=== PATIENT | female | born 1960 | race Caucasian/White ===

== ENCOUNTER 2016-08-16 05:39 | Emergency (ER) | payer BC, OTHER ==
--- NOTE | 2016-08-16 05:53 | CPEKG ---
Heart Rate: 55 RR Interval: 1091 P-R Interval: 156 QRSD Interval: 78 QT Interval: 432 QTC Interval: 414 P [place]: 58 QRS [place]: 55 T Wave [place]: 48 EKG Severity - NORMAL ECG - EKG Impression: SINUS RHYTHM Electronically Signed By: Gera Ortega 16-Aug-2016 08:10:14
[2016-08-16 05:55] VITALS: TEMP 97.9
[2016-08-16] MEDS ORDERED: ASPIRIN 81 MG CHEWABLE TAB ONE (06:02)
[2016-08-16] MEDS ORDERED: NS 1,000 ML IV ONE ×2 (06:05→06:45)
--- NOTE | 2016-08-16 06:05 | EDPHY ---
H & P Stated Complaint: CP HPI/ROS: HPI CHIEF COMPLAINT: Chest Pain HISTORY OF PRESENT ILLNESS: This patient very pleasant 56-year-old female no significant medical history except for thyroid disease, she presents emergency room with chest discomfort she describes as a weight sitting on her chest or chest pressure. It is centered in her chest does not radiate she has no associated symptoms with it. She denies nausea, vomiting, diarrhea, numbness or tingling or arm pain or jaw pain or generalized weakness or fatigue. She tells me around midnight woke her up from sleep it lasted approximately 15 minutes and then she fell back to sleep she slept the rest of the night. She woke up this morning and developed chest discomfort again she decided to seek medical attention evaluation. Patient denies trauma, recent illness, cough , fever, pleuritic pain or shortness of breath. She has no family history of cardiac disease no previous workup for cardiac chest pain. She does not smoke she does not have hypertension or hyperlipidemia. Past Medical History: Thyroid disease Past Surgical History: No recent surgical history Social History: Denies daily use of drugs alcohol tobacco products lives locally Family History: Noncontributory ROS REVIEW OF SYSTEMS: A comprehensive 10 point review of systems is otherwise negative aside from elements mentioned in the history of present illness. Exam Constitutional appears well nontoxic, triage nursing summary reviewed, vital signs reviewed, awake/alert. Eyes normal conjunctivae and sclera, EOMI, PERRLA. HENT normal inspection, atraumatic, moist mucus membranes, no epistaxis, neck supple/ no meningismus, no raccoon eyes. Respiratory clear to auscultation bilaterally, normal breath sounds, no respiratory distress, no wheezing. Cardiovascular rate normal, regular rhythm, no murmur, no edema, distal pulses normal. Gastrointestinal soft, non-tender, no rebound, no guarding, normal bowel sounds, no distension, no pulsatile mass. Genitourinary no CVA tenderness. Musculoskeletal no midline vertebral tenderness, full range of motion, no calf swelling, no tenderness of extremities, no meningismus, good pulses, neurovascularly intact. Skin pink, warm, & dry, no rash, skin atraumatic. Neurologic awake, alert and oriented x 3, AAOx3, moves all 4 extremities equally, motor intact, sensory intact, CN II-XII intact, normal cerebellar, normal vision, normal speech. Psychiatric normal mood/affect. Heme/Lymph/Immune no lymphadenopathy. 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 Plan for EKG, chest x-ray. Troponin. Re-evaluation: EKG interpretation by me on record in [employer] system. Impression time of EKG 5:50 a.m., this is sinus rhythm rate of 55 no acute ischemic changes appreciated specifically no ST elevation, ST depression T-wave abnormalities or prolonged intervals. Unremarkable EKG. 0649AM: Patient was given 4 mg IV morphine this made her bradycardic and nauseous. She did get 4 mg IV Zofran and another 1L of fluid. She has no chest pain at this time. Sinus bradycardia in the 40s on the monitor. ED x-ray chest 1 view: Negative for acute cardiopulmonary disease. Clear lung nguyen. Neuro cardiac silhouette. 0651: This patient be admitted to the hospitalist service for a chest pain evaluation chest pain rule out EACU. This is a repeat EKG repeat EKG time 6:57 a.m. sinus bradycardia rate of 46 no acute ischemic changes seen. Source: Patient - Personal History LMP (Females 10-55): Post Menopausal Current Tetanus/Diphtheria Vaccine: Yes Current Tetanus Diphtheria and Acellular Pertussis (TDAP): Yes - Medical/Surgical History Hx Asthma: No Hx Chronic Respiratory Disease: No Hx Diabetes: No Hx Cardiac Disease: No Hx Renal Disease: No Hx Cirrhosis: No Hx Alcoholism: No Hx HIV/AIDS: No Hx Splenectomy or Spleen Trauma: No Other PMH: HYPOTHYROID, l SHOULDER SURGERY - Social History Smoking Status: Never smoked Constitutional: Initial Vital Signs Temperature (C) 36.6 C 08/16/16 05:51 Heart Rate 59 L 08/16/16 05:51 Respiratory Rate 16 08/16/16 05:51 Blood Pressure 127/84 H 08/16/16 05:51 O2 Sat (%) 97 08/16/16 05:51 O2 Delivery Mode Nasal Cannula O2 (L/minute) 2 Allergies/Adverse Reactions: No Known Allergies Allergy (Unverified 08/16/16 05:50) Home Medications: Medication Instructions Recorded Levothyroxine 08/16/16 Medical Decision Making - Data Points Laboratory Results: Laboratory Results 08/16/16 06:00 08/16/16 06:00 08/16/16 08/16/16 08/16/16 06:05 06:00 06:00 WBC 5.76 10^3/uL 10^3/uL (3.80-9.50) RBC 4.56 10^6/uL 10^6/uL (4.18-5.33) Hgb 13.6 g/dL g/dL (12.6-16.3) Hct 39.0 % % (38.0-47.0) MCV 85.5 fL fL (81.5-99.8) MCH 29.8 pg pg (27.9-34.1) MCHC 34.9 g/dL g/dL (32.4-36.7) RDW 12.4 % % (11.5-15.2) Plt Count 175 10^3/uL 10^3/uL (150-400) MPV 10.3 fL fL (8.7-11.7) Neut % (Auto) 53.0 % % (39.3-74.2) Lymph % (Auto) 36.6 % % (15.0-45.0) Burt % (Auto) 7.8 % % (4.5-13.0) Eos % (Auto) 1.9 % % (0.6-7.6) Baso % (Auto) 0.7 % % (0.3-1.7) Nucleat RBC Rel Count 0.0 % % (0.0-0.2) Absolute Neuts (auto) 3.05 10^3/uL 10^3/uL (1.70-6.50) Absolute Lymphs (auto) 2.11 10^3/uL 10^3/uL (1.00-3.00) Absolute Monos (auto) 0.45 10^3/uL 10^3/uL (0.30-0.80) Absolute Eos (auto) 0.11 10^3/uL 10^3/uL (0.03-0.40) Absolute Basos (auto) 0.04 10^3/uL 10^3/uL (0.02-0.10) Absolute Nucleated RBC 0.00 10^3/uL 10^3/uL (0-0.01) Immature Gran % 0.0 % % (0.0-1.1) Immature Gran # 0.00 10^3/uL 10^3/uL (0.00-0.10) PT 13.4 SEC SEC (12.0-15.0) INR 1.03 (0.83-1.16) APTT 27.6 SEC SEC (23.0-38.0) Sodium 139 mEq/L mEq/L (134-144) Potassium 4.1 mEq/L mEq/L (3.5-5.2) Chloride 106 mEq/L mEq/L (97-110) Carbon Dioxide 25 mEq/l mEq/l (22-31) Anion Gap 8 mEq/L mEq/L (8-16) BUN 18 mg/dL mg/dL (7-23) Creatinine 1.0 mg/dL mg/dL (0.6-1.0) Estimated GFR 58 Glucose 88 mg/dL mg/dL (70-100) Calcium 9.7 mg/dL mg/dL (8.5-10.4) Magnesium 2.1 mg/dL mg/dL (1.6-2.3) Total Bilirubin 1.2 mg/dL mg/dL (0.1-1.4) Conjugated Bilirubin 0.4 mg/dL mg/dL (0.0-0.5) Unconjugated Bilirubin 0.8 mg/dL mg/dL (0.0-1.1) AST 30 IU/L IU/L (14-46) ALT 32 IU/L IU/L (9-52) Alkaline Phosphatase 80 IU/L IU/L (38-126) Troponin I < 0.012 ng/mL ng/mL (0-0.034) NT-Pro-B Natriuret Pep 43 pg/mL pg/mL (0-125) Total Protein 7.5 g/dL g/dL (6.3-8.2) Albumin 4.5 g/dL g/dL (3.5-5.0) Lipase 100.0 IU/L IU/L (23-300) Medications Given: Discontinued Medications Aspirin Buffered (Aspirin Ec) 325 mg PO EDNOW ONE Stop: 08/16/16 06:10 Last Admin: 08/16/16 06:20 Dose: 325 mg Sodium Chloride (Ns) 1,000 mls @ 0 mls/hr IV ONCE ONE PRN Reason: Wide Open Stop: 08/16/16 06:06 Last Admin: 08/16/16 06:20 Dose: 1,000 mls Sodium Chloride (Ns) 1,000 mls @ 0 mls/hr IV ONCE ONE PRN Reason: Wide Open Stop: 08/16/16 06:46 Last Admin: 08/16/16 06:45 Dose: 1,000 mls Morphine Sulfate (Morphine) 4 mg IVP EDNOW ONE Stop: 08/16/16 06:34 Last Admin: 08/16/16 06:34 Dose: 4 mg Nitroglycerin (Nitrostat) 0.4 mg SL EDNOW ONE Stop: 08/16/16 06:10 Last Admin: 08/16/16 06:19 Dose: 0.4 mg Ondansetron HCl (Zofran) 4 mg IVP EDNOW ONE Stop: 08/16/16 06:33 Last Admin: 08/16/16 06:33 Dose: 4 mg Ondansetron HCl (Zofran) 4 mg IVP EDNOW ONE Stop: 08/16/16 06:47 Last Admin: 08/16/16 07:00 Dose: 4 mg Departure - Departure Disposition: [facility] Inpatient Acute Clinical Impression: Chest pain Qualifiers: Chest pain type: unspecified Qualified Code(s): R07.9 - Chest pain, unspecified Condition: Fair
[2016-08-16] MEDS ORDERED: ASPIRIN EC 325 MG TAB PO ONE (06:09)
[2016-08-16] MEDS ORDERED: NITROGLYCERIN 0.4 MG BTL SL ONE (06:09)
[2016-08-16 06:16] LABS: ADD DIFF? NO; ADD MORPH? NO; ADD SCAN? NO; ATYPICAL LYMPHOCYTE FLAG 10 (0-99); FRAGMENT RBC FLAG 0 (0-99); HEMOGLOBIN 13.6 g/dL (12.6-16.3); LEFT SHIFT FLG 0 (0-99); LIPEMIA HEMOLYSIS FLAG 90 (0-99); MEAN CELL HEMOGLOBIN 29.8 pg (27.9-34.1); MEAN CELL HEMOGLOBIN CONCENTR. 34.9 g/dL (32.4-36.7); MEAN CELL VOLUME 85.5 fL (81.5-99.8); MEAN PLATELET VOLUME 10.3 fL (8.7-11.7); PLATELET CLUMPS FLAG 0 (0-99); PLATELET COUNT 175 10^3/uL (150-400); RED BLOOD CELL COUNT 4.56 10^6/uL (4.18-5.33); RED CELL DISTRIBUTION WIDTH 12.4 % (11.5-15.2)
[2016-08-16 06:20] LABS: INR 1.03 (0.83-1.16); PROTIME(PATIENT) 13.4 SEC (12.0-15.0)
[2016-08-16 06:21] LABS: APTT 27.6 SEC (23.0-38.0)
[2016-08-16 06:23] LABS: ALANINE AMINOTRANSFERASE 32 IU/L (9-52); ALBUMIN 4.5 g/dL (3.5-5.0); ALKALINE PHOSPHATASE 80 IU/L (38-126); ANION GAP 8 mEq/L (8-16); ASPARTATE AMINOTRANSFERASE 30 IU/L (14-46); BILIRUBIN,TOTAL 1.2 mg/dL (0.1-1.4); BILIRUBIN-CONJUGATED 0.4 mg/dL (0.0-0.5); BILIRUBIN-UNCONJUGATED 0.8 mg/dL (0.0-1.1); CALCIUM 9.7 mg/dL (8.5-10.4); CARBON DIOXIDE 25 mEq/l (22-31); CHLORIDE 106 mEq/L (97-110); GLOMERULAR FILTRATION RATE 58; GLUCOSE 88 mg/dL (70-100); MAGNESIUM 2.1 mg/dL (1.6-2.3); POTASSIUM 4.1 mEq/L (3.5-5.2); SODIUM 139 mEq/L (134-144); TOTAL PROTEIN 7.5 g/dL (6.3-8.2)
[2016-08-16] MEDS ORDERED: ONDANSETRON 4 MG/2 ML VIAL ONE (06:27)
[2016-08-16] MEDS ORDERED: ONDANSETRON 4 MG/2 ML VIAL IVP ONE ×2 (06:32→06:46)
[2016-08-16 06:35] LABS: TROPONIN I < 0.012 ng/mL (0-0.034)
--- NOTE | 2016-08-16 06:59 | CPEKG ---
Heart Rate: 46 RR Interval: 1304 P-R Interval: 168 QRSD Interval: 82 QT Interval: 512 QTC Interval: 448 P [place]: 70 QRS [place]: 59 T Wave [place]: 53 EKG Severity - OTHERWISE NORMAL ECG - EKG Impression: SINUS BRADYCARDIA Electronically Signed By: Gera Ortega 16-Aug-2016 08:10:14
[2016-08-16] MEDS ORDERED: HYOSCYAMINE SULFATE 0.125 MG TAB PO ONE (07:40)
[2016-08-16] MEDS ORDERED: LIDOCAINE 2% VISCOUS 15 ML UDCUP PO ONE (07:40)
[2016-08-16] MEDS ORDERED: MAG HYDROX/AL HYDROX/SIMETH 30 ML UDCUP PO ONE (07:40)
--- NOTE | 2016-08-16 09:59 | GCON ---
[f rep st] CONSULTATION CARDIOLOGY CONSULTATION DATE OF CONSULTATION: 08/16/2016 We were asked by Dr. Ortega of the emergency department to evaluate the patient for her chest pain. HISTORY OF PRESENT ILLNESS: The patient is a 56-year-old female with a past medical history of hypo thyroidism who presented to the emergency department after onset of chest pain at midnight. She was awoken from her sleep with midsternal chest heaviness at a 4/10. There was no positional respiroph asic or exertional component. She noted the discomfort was not radiating nor did it have associated nausea, diaphoresis, or shortness of breath. She did lie awake with it for 2 hours as she was conc erned with the location of it. However, she was able to fall back asleep. In the morning at approx imately 5 a.m., she noted that the symptoms were still there and therefore presented to the emergenc y department for further evaluation. Currently, she still feels that there is a milder discomfort in her substernal region. She has been given nitroglycerin and morphine, which may have decreased the discomfort at this point. In terms of cardiac risk factors, she denies any history of dyslipidemia, hypertension, or diabetes or predia betes. Family history is negative for early cardiovascular disease. 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 Her mother just recently had a stroke, and she has been inundated with her care as well as [facility] family dynamics, which has prevented her from regular exercise. Also, she reports increased stres s at her work. She does feel like her current symptoms may be related to some anxiety due to work a nd family stressors. REVIEW OF SYSTEMS: As per HPI. A complete 10-point review of systems was obtained and is negative except for what is dictated in the HPI. PAST SURGICAL HISTORY: No surgeries. SOCIAL HISTORY: Patient is . She denies any tobacco or alcohol usage. FAMILY HISTORY: Mother is 96 and recently had a CVA and has some complications from that. Father d ied of pulmonary fibrosis at 62. She has 8 siblings and they are all without cardiovascular disease . MEDICATIONS: Levothyroxine. ALLERGIES: No known drug allergies. PHYSICAL EXAM: VITAL SIGNS: BP of 95/66, heart rate 49, respirations 14, O2 saturation 99% on 2 L/ min. GENERAL: She is a very pleasant female in no apparent distress. HEENT: Head is normocephali c and atraumatic. Eyes are without scleral icterus. Mucous membranes moist. NECK: Supple with no JVD. No carotid bruits. HEART: Regular rate and rhythm with no rubs, gallops, or murmurs. LUNGS : Clear to auscultation bilaterally. ABDOMEN: Soft, nontender, and nondistended with normoactive bowel sounds. SKIN: Warm and dry. PSYCH: Normal mood and affect given situation. NEURO: No foc al deficits detected. LABORATORY DATA: CBC with WBCs 5.76, hemoglobin 13.6, hematocrit 39, platelet count of 175. BMP wi th sodium 139, potassium 4.1, chloride 106, CO2 25, BUN 18, creatinine 1, glucose 88. Liver functio n within normal limits. Lipase 100. Troponin less than 0.012. A 12-lead ECG personally interpreted from today at 6:57 as well as 5:50 a.m. Both demonstrate sinus bradycardia without any ST-T wave abnormalities. Chest x-ray within normal limits. IMPRESSION AND PLAN: The patient is a 56-year-old female with no significant cardiovascular risk fa ctors who presents with chest pain syndrome, likely noncardiac given age. We will proceed to a zuly dmill stress test for further risk stratification after obtaining a 2nd troponin 10 hours after onse t of symptoms. /[id number]/MODL
[2016-08-16 10:27] VITALS: BP 95/71; PULSE 52; RESP 16; O2SAT 98
== END 2016-08-16 10:26 | disposition home or self-care (01) ==
LOC: UNDOADMOB 06:59
DX: R07.9 Chest pain, unspecified (principal)
CPT/HCPCS: 96374; J2405

== ENCOUNTER → 2017-06-23 | Outpatient (CLI) | payer OTHER | LOC: BMCIMAGING 14:57 | PROVIDERS: ATTEND Internal Medicine | DX: Z12.31 Encounter for screening mammogram for malignant neoplasm of breast (principal); Z80.3 Family history of malignant neoplasm of breast ==

== ENCOUNTER → 2018-07-16 | Outpatient (CLI) | payer OTHER | LOC: FIMAGING 09:28 | PROVIDERS: ATTEND Nurse Practitioner Adult Health | DX: Z12.31 Encounter for screening mammogram for malignant neoplasm of breast (principal); Z80.3 Family history of malignant neoplasm of breast ==